=== PATIENT | male | born 1960 | race Two or more races ===

== ENCOUNTER 2022-08-01 21:46 | Emergency (ER) | payer OTHER ==
[~2022-08-01] VITALS: Ht 167.6 cm; Wt 110.0 kg
[2022-08-01 23:34] VITALS: BP 130/70
== END 2022-08-02 00:58 ==
LOC: EMS 21:50
DX: T50.7X1A Poisoning by analeptics and opioid receptor antagonists, accidental (unintentional), initial encounter (principal); F11.10 Opioid abuse, uncomplicated; Y92.9 Unspecified place or not applicable
CPT/HCPCS: 99283; Z7502